=== PATIENT | male | born 1965 ===

== ENCOUNTER 2018-07-15 21:21 | Emergency (ER) | payer OTHER ==
[2018-07-15] MEDS ORDERED: Tetracaine 0.5% OPTH.SOL 15ML* BTL ONE (21:33)
[2018-07-15] MEDS ORDERED: Tetracaine 0.5% OPTH.SOL 4 ML* 1 DROP BTL ONE (21:34)
[2018-07-15 21:40] VITALS: BP 145/88
[2018-07-15] MEDS ORDERED: Polymyx/Trimethoprim OPTH* 10 ML BTL LEFT EYE ONE (21:43)
--- NOTE | 2018-07-15 21:46 | UC ---
Eye Complaint HPI - HPI Summary HPI Summary: The patient is a 53-year-old male that sustained a left eye foreign body this a.m. about 9 while using a convex grinder operator. He has a left eye foreign body sensation as well as redness and tearing of the eye. He states that he is able to see normally out of his eye. He has had cataracts removed from both eyes. - History of Current Complaint Chief Complaint: UCEye Stated Complaint: F.B. EYE Time Seen by Provider: 07/15/18 21:29 Hx Obtained From: Patient Onset/Duration: Sudden Onset, Lasting Hours Timing: Constant Severity Initially: Moderate Severity Currently: Moderate Pain Intensity: 5 Pain Scale Used: 0-10 Numeric Location of Injury: Conjunctiva Character: Throbbing Aggravating Factor(s): Light Associated Signs And Symptoms: Positive: Photophobia, Drainage (Clear) Related History: Foreign Body Eyes: 1 - FB - Risk Factors Penetrating Injury Risk Factor: Grinding Globe Rupture Risk Factors: Negative Acute Glaucoma Risk Factors: Negative Optic Artery Occlusion Risk Factors: Negative - Allergies/Home Medications Allergies/Adverse Reactions: Allergies Allergy/AdvReac Type Severity Reaction Status Date / Time No Known Allergies Allergy Verified 07/15/18 21:40 Home Medications: Home Medications Pravastatin (NF) [Pravachol (NF)] 60 mg PO DAILY 07/15/18 [History Confirmed 04/25] PMH/Surg Hx/FS Hx/Imm Hx Previously Healthy: Yes Endocrine History: Dyslipidemia - Surgical History Surgical History: Yes Surgery Procedure, Year, and Place[place] [facility] [place] [facility] [place] [facility] [place] - Family History Known Family History: Positive: Hypertension - Social History Alcohol Use: Occasionally Alcohol Amount: 3-4 BEERS PER MONTH Substance Use Type: None Smoking Status (MU): Never Smoked Tobacco Amount Used/How Often: PACK A DAY When Did the Patient Quit Smoking/Using Tobacco: 2003 Review of Systems Constitutional: Negative Skin: Negative Eyes: Eye Redness, Photophobia ENT: Negative Respiratory: Negative Cardiovascular: Negative Gastrointestinal: Negative Genitourinary: Negative Motor: Negative Neurovascular: Negative Musculoskeletal: Negative Neurological: Negative Psychological: Negative All Other Systems Reviewed And Are Negative: Yes Physical Exam Triage Information Reviewed: Yes Appearance: No Pain Distress, Well-Nourished Vital Signs: Initial Vital Signs Temp 98.6 F 07/15/18 21:35 Pulse 59 07/15/18 21:35 Resp 15 07/15/18 21:35 BP 145/88 07/15/18 21:35 Pulse Ox 100 07/15/18 21:35 Vital Signs Reviewed: Yes Eyes: Positive: Conjunctiva Inflamed - L, Other: - FB noted Left EYE-see image ENT: Positive: Hearing grossly normal. Negative: Nasal congestion, Nasal drainage, Trismus, Muffled voice, Hoarse voice Neck: Positive: Supple, Nontender Respiratory: Positive: Lungs clear, Normal breath sounds, No respiratory distress, No accessory muscle use Cardiovascular: Positive: RRR, No Murmur Musculoskeletal: Positive: ROM Intact, No Edema Neurological: Positive: Alert Psychological Exam: Normal Skin Exam: Normal Procedures - Eye Procedure Left Alcaine Drops Administered: Yes - 2 drop tetracaine Eye FB Removal: removal w/ cotton swab Eye Complaint Course/Dx - Differential Dx/Diagnosis Provider Diagnoses: left corneal FB -removed Discharge - Sign-Out/Discharge Documenting (check all that apply): Patient Departure All imaging exams completed and their final reports reviewed: No Studies - Discharge Plan Condition: Stable Disposition: HOME Patient Education Materials: Eye Foreign Body (ED) Referrals: Brenton Anderson MD [Primary Care Provider] - Additional Instructions: polytrim eye drops 1-2 drops left eye 4x day for 3 days recheck in 24 hours if not back to normal - Billing Disposition and Condition Condition: STABLE Disposition: Home
== END 2018-07-15 21:50 | disposition home or self-care (01) ==
LOC: UCEAST 21:21
DX: T15.02XA Foreign body in cornea, left eye, initial encounter (principal); X58.XXXA Exposure to other specified factors, initial encounter; Y92.9 Unspecified place or not applicable; E78.5 Hyperlipidemia, unspecified; Z79.899 Other long term (current) drug therapy; Z87.891 Personal history of nicotine dependence
CPT/HCPCS: 65220; 99202; A9270-GY; G0463